=== PATIENT | female | born 1990 | race African-American/Black ===

== ENCOUNTER 2024-02-04 09:03 | Inpatient (IN) | payer OTHER ==
[2024-02-04 09:35] VITALS: BMI 24.7
[2024-02-04] MEDS ORDERED: BENZONATATE 200 MG CAPSULE PO PRN (10:24)
[2024-02-04] MEDS ORDERED: NICOTINE POLACRILEX 2 MG GUM BUC PRN (10:24)
[2024-02-04] MEDS ORDERED: hydrOXYzine PAMOATE 25 MG CAPSULE (FP) PO PRN (10:24)
[2024-02-04] MEDS ORDERED: BISMUTH SUBSALICYLATE 524 MG/30 ML PO PRN (10:24)
[2024-02-04] MEDS ORDERED: LOPERAMIDE HCL 2 MG CAPSULE PO PRN (10:24)
[2024-02-04] MEDS ORDERED: MAG HYDROX/AL HYDROX/SIMETH 30 ML UNIT-DOSE CUP PO PRN (10:24)
[2024-02-04] MEDS ORDERED: NALOXONE HCL 0.4 MG/ML VIAL IM PRN (10:24)
[2024-02-04] MEDS ORDERED: guaiFENesin 600 MG TABLET.ER (FP) PO PRN (10:24)
[2024-02-04] MEDS ORDERED: DICYCLOMINE HCL 10 MG CAPSULE PO PRN (10:24)
[2024-02-04] MEDS ORDERED: IBUPROFEN 400 MG TABLET (FP) PO PRN (10:24)
[2024-02-04] MEDS ORDERED: ONDANSETRON *ODT* 4 MG TABLET SL PRN (10:24)
[2024-02-04] MEDS ORDERED: MAGNESIUM HYDROX 2400MG/30ML ORAL SUSPENSION 30 ML CUP PO PRN (10:24)
[2024-02-04] MEDS ORDERED: NALOXONE (NARCAN) HCL 4 MG/0.1 ML SPRAY NS PRN (10:24)
[2024-02-04] MEDS ORDERED: POLYETHYLENE GLYCOL (HEALTHYLAX) 3350 17 GM PACKET PO PRN (10:24)
[2024-02-04] MEDS ORDERED: BENZOCAINE/MENTHOL (CHLORASEPTIC ) LOZENGE MM PRN (10:24)
[2024-02-04] MEDS ORDERED: cloNIDine HCL 0.1 MG TABLET ONE (10:37)
[2024-02-04] MEDS: cloNIDine HCL 0.1 MG TABLET PO ONE (10:39)
[2024-02-04] MEDS: amLODIPine BESYLATE 10 MG TABLET (FP) PO ONE (17:20)
[2024-02-04] MEDS: cloNIDine HCL 0.1 MG TABLET PO PRN (19:32)
[2024-02-04] MEDS: MELATONIN 5 MG TABLETS PO SCH (22:17)
[2024-02-04] MEDS: THIAMINE 100 MG TABLET PO SCH (22:17)
[2024-02-04] MEDS: IBUPROFEN 600 MG TABLET (FP) PO PRN (22:17)
[2024-02-04] MEDS: METHOCARBAMOL 500 MG TABLET PO PRN (22:18)
[2024-02-05 08:32] LABS: POTASSIUM 3.6 mmol/L (3.5-5.1)
[2024-02-05 08:33] LABS: HEMATOCRIT 35.4 % (32.4-45.2); HEMOGLOBIN 12.3 GM/dL (10.7-15.3); MCH 32.7 pg (25.7-33.7); MCHC 34.8 g/dl (32.0-36.0); MEAN CELL VOLUME 93.9 fl (80-96); MEAN PLT VOLUME 8.2 fl (7.5-11.1); PLATELET COUNT 226 10^3/uL (134-434); RBC 3.77 M/mm3 (3.60-5.2); RDW 13.8 % (11.6-15.6); WHITE BLOOD COUNT 3.1 K/mm3 (4.0-10.0)
[2024-02-05 08:34] LABS: ALBUMIN 3.9 g/dl (3.4-5.0); BLOOD UREA NITROGEN 8.1 mg/dL (7-18); CALCIUM 8.5 mg/dL (8.5-10.1)
[2024-02-05 08:37] LABS: CREATININE 0.4 mg/dL (0.55-1.3)
[2024-02-05 08:39] LABS: BILIRUBIN,TOTAL 0.6 mg/dL (0.2-1); TOT PROT 8.2 g/dl (6.4-8.2)
[2024-02-05] MEDS: amLODIPine BESYLATE 10 MG TABLET (FP) PO SCH (09:55)
[2024-02-05] MEDS: NICOTINE 14 MG/24 HOURS TOPICAL PATCH TD SCH (09:55)
[2024-02-05] MEDS: PRENATAL VITAMINS W/ FOLIC ACID TABLET (FP) PO SCH (09:55)
[2024-02-06 06:12] VITALS: PULSE 60
[2024-02-06 08:56] VITALS: BP 133/87; RESP 18; TEMP 98.9
[2024-02-06] MEDS: ACETAMINOPHEN 325 MG TABLET (FP) PO PRN (09:53)
== END 2024-02-06 11:19 | disposition home or self-care (01) | DRG 775 ==
LOC: YASAS 09:03 → Y3N 11:03
PROVIDERS: ADMIT Allergy & Immunology; ATTEND Surgery
PROC: HZ2ZZZZ Detoxification Services for Substance Abuse Treatment (ICD-10-PCS; principal; 2024-02-04)
DX: F10.20 Alcohol dependence, uncomplicated (principal); F12.10 Cannabis abuse, uncomplicated; F17.210 Nicotine dependence, cigarettes, uncomplicated; I10 Essential (primary) hypertension; Z86.69 Personal history of other diseases of the nervous system and sense organs
CPT/HCPCS: 36415; 71046-TC-FY; 80053; 80305; 80307; 81025; 85027; 86780; 93005; 93010